=== PATIENT | female | born 1975 | race Caucasian/White ===

== ENCOUNTER 2020-11-17 15:40 | Outpatient (CLI) | payer BC, OTHER ==
[2020-11-17 16:17] LABS: #Basophils 0.1 thou/uL (0.0-0.2); #Eosinphils 0.1 thou/uL (0.0-0.7); #Lymphocytes 2.1 thou/uL (1.20-3.40); #Monocytes 0.6 thou/uL (0.11-0.59); #Neutrophils 4.8 thou/uL (1.40-6.50); %Basophils 0.8 % (0.0-1.0); %Eosinophils 1.7 % (0.0-10.0); %Lymphocytes 27.6 % (21.0-51.0); %Neutrophils 61.8 % (42.0-75.0); Hemoglobin 6.5 g/dL (12.0-16.0); Mean Corpuscular HGB CONC 32.1 g/dL (32.0-36.0); Mean Corpuscular Hemoglobin 27.4 pg (27.0-31.0); Mean Corpuscular Volume 85.3 fL (78.0-98.0); Mean Platelet Volume 5.1 fL (7.4-10.4); Platelet Count 273 thou/uL (130-400); RBC Distribution Width 13.5 % (11.5-14.5); Red Blood Cell (RBC) Count 2.38 mill/uL (4.20-5.40); White Blood Cell (WBC) Count 7.8 thou/uL (4.8-10.8)
[2020-11-17 16:22] LABS: Anion Gap 14 mmol/L (10-20); BUN (Urea Nitrogen) 71 mg/dL (7.0-18.7); Calc. Creatinine Clearance 0 mL/min (70-130); Calcium 8.1 mg/dL (7.8-10.44); Carbon Dioxide 16 mmol/L (22-29); Chloride 118 mmol/L (98-107); Glucose 111 mg/dL (70-105); Potassium 4.5 mmol/L (3.5-5.1); Sodium 143 mmol/L (136-145)
== END 2020-11-17 15:41 | disposition home or self-care (01) ==
LOC: MADLAB 15:40
PROVIDERS: ATTEND Internal Medicine Nephrology
DX: N18.5 Chronic kidney disease, stage 5 (principal)
CPT/HCPCS: 36415; 80048; 85025